=== PATIENT | male | born 1990 | race Caucasian/White ===

== ENCOUNTER 2020-01-29 14:50 | Emergency (ER) | payer OTHER, SELFPAY ==
[2020-01-29 15:01] VITALS: BP 115/84; PULSE 60; RESP 18; TEMP 37.1; O2SAT 100; BMI 23.0
--- NOTE | 2020-01-29 15:12 | XR_ITS ---
WS: [id number] XR chest 1V portable [id number] REASON FOR EXAM: CP FINDINGS: No pneumothorax is noted. The lung gonzalez are well aerated. No pneumonia, pleural effusion, pulmonary edema, or masses. The hilum and apices normal. No osseous abnormalities. XR/XR chest 1V portable [id number] IMPRESSION: Negative chest for acute pathology.
--- NOTE | 2020-01-29 15:12 | ECG_ITS ---
Measurements Intervals [place] Rate: 64 P: 50 CO: 138 QRS: 62 QRSD: 89 T: 53 QT: 358 QTc: 371 SINUS RHYTHM POSSIBLE RIGHT VENTRICULAR CONDUCTION DELAY [RSR (QR) IN V1/V2] ST ELEVATION, PROBABLY EARLY REPOLARIZATION [ST ELEVATION WITH NORMALLY IN INFLECTED T WAVE] Compared to ECG 08/25/2016 10:58:31 ST (T wave) deviation now present Early repolarization now present Electronically Signed On 01-30-2020 19:56:35 CDT by Tej Massey M.D. [id number]
[2020-01-29 15:49] LABS: Basophils % 0.4 %; Eosinophils # 0.1 10^3/uL (0.0-0.8); Eosinophils % 1.7 %; Hematocrit 44.5 % (42.0-52.0); Lymphocytes # 1.9 10^3/uL (0.8-4.8); Lymphocytes % 26.4 %; Mean Corpuscular HGB Conc 33.7 g/dL (30.0-36.0); Mean Corpuscular Hemoglobin 30.7 pg (28.0-34.0); Mean Corpuscular Volume 91.2 fL (80-94); Mean Platelet Volume 9.8 fL (7.4-10.4); Monocytes # 0.7 10^3/uL (0.2-0.9); Neutrophils # 4.4 10^3/uL (1.8-7.7); Neutrophils % 61.4 %; Nucleated Red Blood Cells % 0 %; Platelet Count 257 10^3/cmm (130-400); Red Blood Count 4.88 10^6/uL (4.1-5.3); White Blood Count 7.1 10^3/uL (4.0-10.0)
[2020-01-29 16:04] LABS: D Dimer <= 0.27 ug/mIFEU (0-0.59)
[2020-01-29 16:12] LABS: Troponin(5th) Baseline 6 ng/mL (0-15)
[2020-01-29 16:22] LABS: Alanine Aminotransferase 21 U/L (0-41); Albumin Level 4.6 g/dL (3.5-5.2); Alkaline Phosphatase 115 IU/L (40-130); Anion Gap 15.1 (5-19); Aspartate Amino Transferase 17 U/L (0-40); Blood Urea Nitrogen 13 mg/dL (6-20); Calcium 9.7 mg/dL (8.5-10.5); Carbon Dioxide 25 mmol/L (22-29); Chloride 103 mmol/L (98-107); Globulin 2.3 g/dL (1.3-4.6); Glomerular Filtration Rate 99.8 mL/min (90-130); Glucose 112 mg/dL (65-115); NT Pro B Type Natriuretic Pept 49 pg/mL (0-125); Osmolality Calculated 285 mOsm/kg (285-295); Potassium 4.1 mmol/L (3.5-5.1); Sodium 139 mmol/L (136-145); Total Bilirubin 0.2 mg/dL (0.15-1.2); Total Protein 6.9 g/dL (6.6-8.7)
--- NOTE | 2020-01-29 17:12 | PC.NURSE ---
EKG done at 1710 and shown to ER doctor
--- NOTE | 2020-01-29 18:43 | PC.NURSE ---
Pt has been seen several times leaving the department to go outside and smoke.
--- NOTE | 2020-01-29 19:37 | USCV_ITS ---
Víctor Espana Age: 30 Gender: M : 1990 Exam Date: 01/29/2020 20:52 Ordering Phys: Carson Zuniga DO Technologist: Kristian Schulz Exam Location: [facility] [place]_ Indication: LT ARM PAIN AND SWELLING HISTORY: Upper extremity pain. PROCEDURES: Venous duplex imaging was performed in only the left upper extremity. The following venous structures were evaluated: internal jugular vein, subclavian vein, axillary vein, and brachial veins. In addition, the basilic vein, cephalic vein, radial vein, and ulnar vein. Serial compression, augmentation maneuvers, and spectral Doppler flow evaluation were performed. FINDINGS: The veins of the left upper extremity are readily compressible with normal venous flow dynamics including spontaneous flow, respiratory phasic variation and augmentation. No evidence of deep vein thrombosis or superficial thrombophlebitis in the left upper extremity. CONCLUSIONS No evidence of venous thrombosis in the above-mentioned identifiable veins Dr Tej Massey MD [facility] (Electronically Signed) Final Date: 30 Jan 2020 14:31 S
[2020-01-29 20:05] LABS: Troponin 5 2HR Delta 0 ABS# (0-10)
[2020-01-29 20:13] LABS: Add Urine Microscopic? NO
[2020-01-29 20:30] LABS: Bilirubin Urine Neg (NEGATIVE); Blood Urine Neg (Negative); Glucose Urine UA Norm (Normal); Ketones Urine Negative (Negative); Leukocyte Esterase Urine Negative (Negative); Nitrate Urine Negative (Negative); Protein Urine Neg (Negative); Specific Gravity, Urine 1.015 (1.005-1.030); Urine Appearance Clear (CLEAR); Urine Color Yellow (Yellow); Urobilinogen Urine Norm (Negative); pH Urine 7 (5-7)
--- NOTE | 2020-01-29 21:12 | ECG_ITS ---
Measurements Intervals [place] Rate: 59 P: 48 [place]: 131 QRS: 64 QRSD: 88 T: 60 QT: 374 QTc: 372 SINUS BRADYCARDIA WITH SINUS ARRHYTHMIA EARLY REPOLARIZATION [ST ELEVATION WITH NORMALLY INFLECTED T WAVE] Compared to ECG 08/25/2016 10:58:31 Early repolarization now present Sinus rhythm no longer present Electronically Signed On 01-30-2020 20:12:14 CDT by Tej Massey M.D. [email or web address]
--- NOTE | 2020-01-29 21:18 | ED_ITS ---
HPI - Extremity Problem General: Chief complaint: Extremity Problem,Nontraumatic Stated complaint: sob, cp, chest tightness Time Seen by Provider: 01/29/20 19:20 History of Present Illness: HPI Narrative: 30-year-old male with a burning type sensation to his left chest left axilla and in her left arm. Some pain with deep breathing. No shortness of breath. Tenderness in the arm is reproducible. He has some paresthesias into the fingers. No long car trips, no fever, no cough. MD Complaint: extremity pain Onset (ago): day(s) Pain Consistency: intermittent Location: left Quality: burning Radiation: proximal Relieving factors: nothing Exacerbating factors: nothing Associated symptoms: Deny fever(s), rash or short of breath Review of Systems Const: Denies: fever Eyes: Denies: change in vision ENMT: Denies: painful swallowing, swelling of lips/tongue, Change in hearing or facial/sinus pain Resp: Denies: shortness of breath, productive cough, non-productive cough or wheezing GI: Denies: abdominal pain, nausea or vomiting : Denies: difficulty urinating, urinary urgency or blood in urine Musc: Reports: back pain; Denies: neck pain, redness or joint warmth Skin/Breast: Denies: rash, itching or redness Neuro: Denies: headache, dizziness or vertigo Psych: Denies: anxiety PFSH ED PFSH: Social History Smoking and tobacco status: former smoker Physical Exam Const: GENERAL APPEARANCE: well developed ORIENTATION/CONSCIOUSNESS: Yes oriented to person, Yes oriented to place and Yes oriented to time HENMT: COMMON NORMALS: normocephalic HEAD & SCALP: normocephalic FACE & SINUS: normal facial exam NOSE: no nasal discharge MOUTH: tongue normal Eye: COMMON NORMALS: PERRL, EOMs intact bilaterally and conjunctivae normal EYELID: eyelids normal CONJUNCTIVA: Yes conjunctivae normal PUPIL: Yes PERRL Neck/C-Spine: COMMON NORMALS: full ROM GENERAL: No tracheal deviation CERVICAL SPINE: Yes normal cervical lordosis and No cervical spine tenderness Chest: COMMONS NORMALS: inspection of chest normal CHEST: Yes tenderness Resp: COMMON NORMALS: clear to auscultation bilaterally EFFORT & INSPECTION: No tachypneic, No respiratory distress, No retractions, No uses accessory muscles and No tracheal deviation AUSCULTATION: clear to auscultation bilaterally, no rhonchi, no wheezes and lung sounds not diminished Cardio: COMMON NORMALS: regular rate and regular rhythm RATE: regular rate RHYTHM: regular rhythm HEART SOUNDS: no murmurs PERIPHERAL PULSES: radial pulses present GI: INSPECTION: No abdominal distension AUSCULTATION: No hyperactive bowel sounds and No hypoactive bowel sounds PALPATION: No guarding and No rigid PERCUSSION: no dullness to percussion and no tympanic to percussion Neuro: SENSORIUM/ORIENTATION: Yes oriented to person, Yes oriented to place and Yes oriented to time Psych: COMMON NORMALS: mental status grossly normal Skin: COMMON NORMALS: no rashes or lesions noted GENERAL SKIN EXAM: no rashes or lesions noted Course Vital Signs: Vital signs: Vital Signs Temperature 98.7 F 01/29/20 15:01 Pulse Rate 78 01/29/20 21:54 Respiratory Rate 18 01/29/20 21:54 Blood Pressure 134/84 01/29/20 21:54 Pulse Oximetry 97 01/29/20 21:54 MDM - Extremity (Nontraumatic) MDM Narrative: Medical decision making narrative: Somewhat reproducible pain on palpation of the left anterior and posterior upper chest wall, as well as the inner arm. His EKG is normal without ST change. His troponin is negative. His d-dimer is nondetectable. Ultrasound of the left upper extremity is negative for DVT. He has great radial pulses. His labs are otherwise normal. His chest x-ray is negative. Lab Data: Labs: Lab Results 01/29/20 01/29/20 01/29/20 Range/Units 15:38 15:38 15:38 WBC 7.1 (4.0-10.0) 10^3/ uL RBC 4.88 (4.1-5.3) 10^6/u L Hgb 15.0 (11.7-16.6) g/dL Hct 44.5 (42.0-52.0) % MCV 91.2 (80-94) fL MCH 30.7 (28.0-34.0) pg MCHC 33.7 (30.0-36.0) g/dL RDW 12.0 L (12.1-15.1) % Plt Count 257 (130-400) 10^3/c mm MPV 9.8 (7.4-10.4) fL Neut % (Auto) 61.4 % Lymph % (Auto) 26.4 % [place] % (Auto) 10.0 % Eos % (Auto) 1.7 % Baso % (Auto) 0.4 % Neut # (Auto) 4.4 (1.8-7.7) 10^3/u L Lymph # (Auto) 1.9 (0.8-4.8) 10^3/u L [place] # (Auto) 0.7 (0.2-0.9) 10^3/u L Eos # (Auto) 0.1 (0.0-0.8) 10^3/u L Baso # (Auto) 0.0 (0.0-0.1) 10^3/u L Nucleated RBC % (a uto) 0 % Nucleated RBCs # 0.0 /100WBC D-Dimer <= 0.27 (0-0.59) ug/mIFE U Sodium 139 (136-145) mmol/L Potassium 4.1 (3.5-5.1) mmol/L Chloride 103 (98-107) mmol/L Carbon Dioxide 25 (22-29) mmol/L Anion Gap 15.1 (5-19) BUN 13 (6-20) mg/dL Creatinine 0.9 (0.7-1.2) mg/dL GFR Calculation 99.8 (90-130) mL/min Glucose 112 (65-115) mg/dL Calculated Osmolal ity 285 (285-295) mOsm/k g Calcium 9.7 (8.5-10.5) mg/dL Total Bilirubin 0.2 (0.15-1.2) mg/dL AST 17 (0-40) U/L ALT 21 (0-41) U/L Alkaline Phosphata se 115 (40-130) IU/L Troponin T Baselin e (0-15) ng/mL Troponin T 120 Min [place] (0-15) ng/mL Delta Troponin T (0-10) ABS# NT-Pro-B Natriuret Pep 49 (0-125) pg/mL Total Protein 6.9 (6.6-8.7) g/dL Albumin 4.6 (3.5-5.2) g/dL Globulin 2.3 (1.3-4.6) g/dL Urine Color (Yellow) Urine Appearance (CLEAR) Urine pH (5-7) Ur Specific Gravit y (1.005-1.030) Urine Protein (Negative) Urine Glucose (UA) (Normal) Urine Ketones (Negative) Urine Blood (Negative) Urine Nitrate (Negative) Urine Bilirubin (NEGATIVE) Urine Urobilinogen (Negative) mg/dL Ur Leukocyte Rossy ase (Negative) 01/29/20 01/29/20 01/29/20 Range/Units 15:38 18:08 20:00 WBC (4.0-10.0) 10^3/ uL RBC (4.1-5.3) 10^6/u L Hgb (11.7-16.6) g/dL Hct (42.0-52.0) % MCV (80-94) fL MCH (28.0-34.0) pg MCHC (30.0-36.0) g/dL RDW (12.1-15.1) % Plt Count (130-400) 10^3/c mm MPV (7.4-10.4) fL Neut % (Auto) % Lymph % (Auto) % [place] % (Auto) % Eos % (Auto) % Baso % (Auto) % Neut # (Auto) (1.8-7.7) 10^3/u L Lymph # (Auto) (0.8-4.8) 10^3/u L [place] # (Auto) (0.2-0.9) 10^3/u L Eos # (Auto) (0.0-0.8) 10^3/u L Baso # (Auto) (0.0-0.1) 10^3/u L Nucleated RBC % (a uto) % Nucleated RBCs # /100WBC D-Dimer (0-0.59) ug/mIFE U Sodium (136-145) mmol/L Potassium (3.5-5.1) mmol/L Chloride (98-107) mmol/L Carbon Dioxide (22-29) mmol/L Anion Gap (5-19) BUN (6-20) mg/dL Creatinine (0.7-1.2) mg/dL GFR Calculation (90-130) mL/min Glucose (65-115) mg/dL Calculated Osmolal ity (285-295) mOsm/k g Calcium (8.5-10.5) mg/dL Total Bilirubin (0.15-1.2) mg/dL AST (0-40) U/L ALT (0-41) U/L Alkaline Phosphata se (40-130) IU/L Troponin T Baselin e 6 (0-15) ng/mL Troponin T 120 Min [place] 6.00 (0-15) ng/mL Delta Troponin T 0 (0-10) ABS# NT-Pro-B Natriuret Pep (0-125) pg/mL Total Protein (6.6-8.7) g/dL Albumin (3.5-5.2) g/dL Globulin (1.3-4.6) g/dL Urine Color Yellow (Yellow) Urine Appearance Clear (CLEAR) Urine pH 7 (5-7) Ur Specific Gravit y 1.015 (1.005-1.030) Urine Protein Neg (Negative) Urine Glucose (UA) Norm (Normal) Urine Ketones Negative (Negative) Urine Blood Neg (Negative) Urine Nitrate Negative (Negative) Urine Bilirubin Neg (NEGATIVE) Urine Urobilinogen Norm (Negative) mg/dL Ur Leukocyte Rossy ase Negative (Negative) Discharge Plan Discharge Patient Disposition: Home, Self-Care Clinical Impression: Paresthesia and pain of left extremity Condition: Stable Prescriptions: New Medrol (Luis E) 4 mg tablets,dose pack See Rx Instructions .ROUTE .COMPLEX Qty: 21 RF: 0 ketorolac 10 mg tablet 10 mg PO Q6H PRN (Reason: pain) 5 Days Qty: 20 RF: 0 No Action omeprazole 20 mg capsule,delayed release(DR/EC) 20 mg PO TID RF: 0 buspirone 15 mg tablet 15 mg PO DAILY RF: 0 Discharge Orders: Discharge Order (Routine); Ordered 01/29/20 Ordered By: Carson Zuniga Discharge Diet: Advance as tolerated Discharge Activity: Increase activity as tolerated Patient Instructions: Paresthesia (ED) Activity Restrictions/Additional Instructions: Return for worsening shortness of breath cough, fever, worsening pain despite treatment, other concerning symptoms. Discharge Date/Time: 01/29/20 21:30 Coding Level of Care Code ED [employer] for Denise Costa
[2020-01-29 21:54] VITALS: BP 134/84; PULSE 78; RESP 18; O2SAT 97
== END 2020-01-29 21:30 | disposition home or self-care (01) ==
PROVIDERS: Family Medicine; Emergency Provider Emergency Medicine
DX: R20.2 Paresthesia of skin (principal); Z87.891 Personal history of nicotine dependence; R07.9 Chest pain, unspecified
CPT/HCPCS: 12345; 36415; 71045; 80053; 81003; 83880; 84484; 85025; 85378; 93005; 93971; 99282; 99284

== ENCOUNTER 2020-02-07 20:24 | Emergency (ER) | payer OTHER, SELFPAY ==
[2020-02-07 20:25] VITALS: BP 120/78; PULSE 82; RESP 18; TEMP 36.7; O2SAT 97; BMI 25.7
--- NOTE | 2020-02-07 20:25 | XR_ITS ---
WS: [id number] CHEST XRAY TECHNIQUE: Portable chest. CLINICAL INFORMATION: Chest pain COMPARISON: January 29, 2020 FINDINGS: Heart: Normal cardiac silhouette. Lungs: Lungs are clear. No consolidation or pleural effusion. Bones: Normal visualized bony structures. XR/XR chest 1V portable [id number] IMPRESSION: No acute chest findings
--- NOTE | 2020-02-07 20:26 | ECG_ITS ---
Measurements Intervals [place] Rate: 61 P: 52 [place]: 139 QRS: 59 QRSD: 88 T: 54 QT: 372 QTc: 375 SINUS RHYTHM POSSIBLE RIGHT VENTRICULAR CONDUCTION DELAY [RSR (QR) IN V1/V2] EARLY REPOLARIZATION [ST ELEVATION WITH NORMALLY INFLECTED T WAVE] Compared to ECG 02/07/2020 20:38:54 Early repolarization now present Electronically Signed On 02-08-2020 20:48:32 CDT by Tej Massey M.D. [id number]
--- NOTE | 2020-02-07 20:34 | ED_ITS ---
HPI - Chest Pain General: Chief Complaint: Chest Pain Stated Complaint: cp Time Seen by Provider: 02/07/20 20:25 History of Present Illness: HPI narrative: Víctor is a 30-year-old male who comes in complaining of chest pain. He states is been intermittent and in his left arm, left back and chest. He was given nitroglycerin and aspirin by EMS with no relief. Patient states he had similar symptoms in August and he was told that he had a panic attack. The patient states that walking and exerting himself makes things better. His symptoms did start today after he resumed smoking which he had quit back in August. He stated he did have an episode where he had the discomfort and he felt warm and burning all over with some shortness of breath and yawning like he could pass out but the symptoms resolved spontaneously. The patient describes the pain as an ache. He has no numbness or tingling or weakness of any of his extremities. Patient states that he may have hurt his back by lifting and straining as he has a very physically demanding job. Because the pain was so severe for a time though that is why he came in for evaluation. Associated symptoms: Reports palpitations; Deny abdominal pain, diaphoresis, dyspnea, fever(s), nausea, syncope or vomiting Review of Systems Const: Denies: fever(s), chills, body aches, fatigue, malaise, night sweats or diaphoresis Eyes: Denies: change in vision, blurry vision or blind spots ENMT: Denies: throat pain, odynophagia, hoarseness, ear or mastoid pain, ear discharge, change in hearing or nasal discharge Card: Reports: chest pain, palpitations and pre-syncope; Denies: lightheadedness, syncope, dyspnea on exertion or orthopnea Resp: Denies: dyspnea, productive cough, non-productive cough, wheezing, hemoptysis or chest congestion GI: Denies: abdominal pain, nausea, vomiting, hematemesis, coffee ground emesis, heartburn, diarrhea, constipation, GI cramping, hematochezia or melena : Denies: flank pain, dysuria, urinary frequency, urinary urgency, oliguria, urinary incontinence or hematuria Musc: Denies: neck pain, back pain, extremity pain, extremity swelling, joint pain, joint swelling, joint redness, joint warmth or joint stiffness Skin/Breast: Denies: rash, pruritus, erythema, skin tenderness or jaundice Neuro: Denies: headache(s), numbness in extremities, weakness in extremities, sensory changes, lack of coordination, difficulty walking, dizziness, vertigo, confusion or Slurred speech present Endo: Denies: polyuria, polydipsia, tired all the time, cold intolerance, excessive sweating, flushing, hot flashes or heat intolerance Rancho/Lymph: Denies: easy bruising, easy bleeding, petechiae, purpura or enlarged lymph nodes All/Imm: Denies: urticaria, throat swelling, tongue swelling, facial swelling or acute wheezing PFSH ED PFSH: Medical History Atypical chest pain GERD (gastroesophageal reflux disease) Hernia Panic attack Umbilical hernia Family History Other Diabetes Stroke Denies family history of CAD (coronary artery disease) Hyperlipidemia Hypertension Social History Smoking and tobacco status: current every day smoker Quit status (tobacco): has quit using tobacco Year quit tobacco: November 2019 Alcohol intake: former Physical Exam Const: COMMON NORMALS: no acute distress, patient oriented x3, no limitations, healthy appearing and well nourished EXAM LIMITATIONS: no altered mental status GENERAL APPEARANCE: cooperative, well kempt and well developed HENMT: COMMON NORMALS: normocephalic, atraumatic, hearing grossly normal bilaterally, external ears normal, EAC's normal, Normal external nose present and moist oral mucous membranes HEAD & SCALP: normal to inspection, normocephalic and atraumatic FACE & SINUS: normal facial exam and face symmetric NOSE: Normal external nose present and Normal nares present EXTERNAL EAR: Yes external ears normal EXTERNAL AUDITORY CANAL: EAC's normal MOUTH: Normal oral and palatal mucosa present, lip normal and tongue normal Eye: COMMON NORMALS: Equal, round and reactive pupils present, EOMs intact bilaterally, conjunctivae normal and no scleral icterus GENERAL EYE: appearance normal, both eyes and all related structures ALIGNMENT: Yes alignment normal PERIORBITAL: periorbital findings normal EYELID: eyelids normal CONJUNCTIVA: Yes conjunctivae normal SCLERA: sclerae normal PUPIL: Yes Equal, round and reactive pupils present Neck/C-Spine: COMMON NORMALS: full ROM, no lymphadenopathy, supple, no meningeal signs and no JVD GENERAL: Yes normal visual inspection and Yes trachea midline CERVICAL SPINE: Yes cervical ROM normal Chest: COMMONS NORMALS: normal inspection of the chest and normal palpation of entire chest wall Resp: COMMON NORMALS: normal respiratory effort, No retractions, No use of accessory muscles and clear to auscultation bilaterally EFFORT & INSPECTION: Yes able to speak in complete sentences AUSCULTATION: clear to auscultation bilaterally, no crackles, no rales, no rhonchi and no wheezes Cardio: COMMON NORMALS: no JVD, regular rate, regular rhythm, S1 normal heart sound present, S2 normal heart sound present, No gallops present (Cardio), No clicks present (Cardio), No murmurs present (Cardio), No rub (Cardio) and Peripheral pulses 2+ throughout RATE: regular rate RHYTHM: regular rhythm HEART SOUNDS: S1 normal heart sound present, S2 normal heart sound present, no click, no gallops, no murmurs and no rubs PERIPHERAL PULSES: Peripheral pulses 2+ throughout, brachial pulses present, radial pulses present, femoral pulses present and dorsalis pedis present GI: COMMON NORMALS: Soft to palpation, non-tender, No hepatosplenomegaly present and no masses PALPATION: Yes Soft to palpation, No Tenderness to palpation present (GI), No Guarding due to palpation present (GI), No Rigid due to palpation, Yes No hepatosplenomegaly present, No Hernia present, No Palpable mass present and No Pulsatile mass present : COMMON NORMALS: Yes no CVA tenderness BLADDER/KIDNEY EXAM: Yes no CVA tenderness Back/Pelvis: COMMON NORMALS: no CVA tenderness, thoracic and lumbar spine normal to inspection, no thoracic nor lumbar tenderness and thoraco-lumbar ROM normal Extremity: COMMON NORMALS: normal to inspection, full ROM, capillary refill normal, no joint enlargement, no clubbing, cyanosis or edema and no calf tenderness Neuro: COMMON NORMALS: patient oriented x3, CN's II-XII intact bilaterally, moves all extremities, no focal motor deficits and no sensory deficits noted MENINGEAL SIGNS: Yes no meningeal signs SPEECH: speech normal Psych: COMMON NORMALS: mental status grossly normal, Normal thought process present, cooperative, normal affect, speech normal and activity/motor behavior normal APPEARANCE: Yes well kempt SPEECH: Yes normal speech THOUGHT PROCESS: Normal thought process present Skin: COMMON NORMALS: no rashes or lesions noted, turgor normal, no jaundice, no petechiae and no mottling GENERAL SKIN EXAM: no rashes or lesions noted a nd turgor normal Course Vital Signs: Vital signs: Vital Signs Temperature 98.0 F 02/07/20 20:25 Pulse Rate 80 02/08/20 00:08 Respiratory Rate 16 02/08/20 00:08 Blood Pressure 120/78 02/08/20 00:08 Pulse Oximetry 96 02/08/20 00:08 MDM - Chest Pain MDM Narrative: Medical decision making narrative: 2338 -anterior is now insisting upon going. The patient continued to complain of left upper back pain. He had a negative d-dimer, 2- troponins and pulses intact in all 4 extremities that were equal and bounding. He did not describe his pain as ripping or tearing and it did not migrate. His pain was always described as a dull ache. I believe this rules out dissection although wanted to be complete with a CT but he refused. He also refused CT of the cervical or thoracic spine which I wanted to obtain because he was having further pain but he refused this as well. Ultimately I think his risk is low as I could reproduce his pain along the left upper parathoracic spinal muscles. Nonetheless he knew he was leaving against my advice but did understand he could return if his symptoms changed or worsened or he simply changed his mind. Patient's heart score was a 2. Lab Data: Labs: Lab Results 02/07/20 02/07/20 02/07/20 Range/Units 20:44 20:44 20:44 WBC 8.2 (4.0-10.0) 10^3/ uL RBC 4.84 (4.1-5.3) 10^6/u L Hgb 14.8 (11.7-16.6) g/dL Hct 44.1 (42.0-52.0) % MCV 91.1 (80-94) fL MCH 30.6 (28.0-34.0) pg MCHC 33.6 (30.0-36.0) g/dL RDW 12.5 (12.1-15.1) % Plt Count 269 (130-400) 10^3/c mm MPV 9.9 (7.4-10.4) fL Neut % (Auto) 63.1 % Lymph % (Auto) 22.4 % Panola % (Auto) 11.5 % Eos % (Auto) 2.3 % Baso % (Auto) 0.5 % Neut # (Auto) 5.2 (1.8-7.7) 10^3/u L Lymph # (Auto) 1.8 (0.8-4.8) 10^3/u L Panola # (Auto) 0.9 (0.2-0.9) 10^3/u L Eos # (Auto) 0.2 (0.0-0.8) 10^3/u L Baso # (Auto) 0.0 (0.0-0.1) 10^3/u L Nucleated RBC % (a uto) 0 % Nucleated RBCs # 0.0 /100WBC D-Dimer (0-0.59) ug/mIFE U Sodium 141 (136-145) mmol/L Potassium 4.0 (3.5-5.1) mmol/L Chloride 105 (98-107) mmol/L Carbon Dioxide 24 (22-29) mmol/L Anion Gap 16.0 (5-19) BUN 13 (6-20) mg/dL Creatinine 0.7 (0.7-1.2) mg/dL GFR Calculation 133.3 H (90-130) mL/min Glucose 121 H (65-115) mg/dL Calculated Osmolal ity 289 (285-295) mOsm/k g Calcium 9.0 (8.5-10.5) mg/dL Magnesium 2.3 (1.7-2.3) mg/dL Total Bilirubin 0.2 (0.15-1.2) mg/dL AST 17 (0-40) U/L ALT 24 (0-41) U/L Alkaline Phosphata se 120 (40-130) IU/L Troponin T Baselin e 6 (0-15) ng/mL Troponin T 120 Min yuhaaviatam (0-15) ng/mL Delta Troponin T (0-10) ABS# Total Protein 6.7 (6.6-8.7) g/dL Albumin 4.5 (3.5-5.2) g/dL Globulin 2.2 (1.3-4.6) g/dL Lipase 15 (13-60) U/L Urine Color (Yellow) Urine Appearance (CLEAR) Urine pH (5-7) Ur Specific Gravit y (1.005-1.030) Urine Protein (Negative) Urine Glucose (UA) (Normal) Urine Ketones (Negative) Urine Blood (Negative) Urine Nitrate (Negative) Urine Bilirubin (NEGATIVE) Urine Urobilinogen (Negative) mg/dL Ur Leukocyte Rossy ase (Negative) Urine RBC (0-2) /hpf Urine WBC (0-5) /hpf Ur Squamous Epith Cells (0-5) Amorphous Sediment Urine Bacteria (NONE) Urine Mucus Urine Opiates Scre en (Negative) ng/mL Ur Barbiturates Sc reen (Negative) ng/mL Ur Phencyclidine S crn (Negative) ng/mL Ur Amphetamines Sc reen (Negative) ng/mL U Benzodiazepines Scrn (Negative) ng/mL Urine Cocaine Scre en (Negative) ng/mL U Marijuana (THC) Screen (Negative) ng/mL 02/07/20 02/07/20 02/07/20 Range/Units 20:44 20:47 20:47 WBC (4.0-10.0) 10^3/ uL RBC (4.1-5.3) 10^6/u L Hgb (11.7-16.6) g/dL Hct (42.0-52.0) % MCV (80-94) fL MCH (28.0-34.0) pg MCHC (30.0-36.0) g/dL RDW (12.1-15.1) % Plt Count (130-400) 10^3/c mm MPV (7.4-10.4) fL Neut % (Auto) % Lymph % (Auto) % Panola % (Auto) % Eos % (Auto) % Baso % (Auto) % Neut # (Auto) (1.8-7.7) 10^3/u L Lymph # (Auto) (0.8-4.8) 10^3/u L Panola # (Auto) (0.2-0.9) 10^3/u L Eos # (Auto) (0.0-0.8) 10^3/u L Baso # (Auto) (0.0-0.1) 10^3/u L Nucleated RBC % (a uto) % Nucleated RBCs # /100WBC D-Dimer 0.47 (0-0.59) ug/mIFE U Sodium (136-145) mmol/L Potassium (3.5-5.1) mmol/L Chloride (98-107) mmol/L Carbon Dioxide (22-29) mmol/L Anion Gap (5-19) BUN (6-20) mg/dL Creatinine (0.7-1.2) mg/dL GFR Calculation (90-130) mL/min Glucose (65-115) mg/dL Calculated Osmolal ity (285-295) mOsm/k g Calcium (8.5-10.5) mg/dL Magnesium (1.7-2.3) mg/dL Total Bilirubin (0.15-1.2) mg/dL AST (0-40) U/L ALT (0-41) U/L Alkaline Phosphata se (40-130) IU/L Troponin T Baselin e (0-15) ng/mL Troponin T 120 Min yuhaaviatam (0-15) ng/mL Delta Troponin T (0-10) ABS# Total Protein (6.6-8.7) g/dL Albumin (3.5-5.2) g/dL Globulin (1.3-4.6) g/dL Lipase (13-60) U/L Urine Color Yellow (Yellow) Urine Appearance Hazy A (CLEAR) Urine pH 7 (5-7) Ur Specific Gravit y 1.015 (1.005-1.030) Urine Protein Neg (Negative) Urine Glucose (UA) Norm (Normal) Urine Ketones Negative (Negative) Urine Blood Neg (Negative) Urine Nitrate Negative (Negative) Urine Bilirubin Neg (NEGATIVE) Urine Urobilinogen Norm (Negative) mg/dL Ur Leukocyte Rossy ase Negative (Negative) Urine RBC 0-4 H (0-2) /hpf Urine WBC None (0-5) /hpf Ur Squamous Epith Cells 0-4 H (0-5) Amorphous Sediment 1+ Urine Bacteria 1+ H (NONE) Urine Mucus 2+ Urine Opiates Scre en Negative (Negative) ng/mL Ur Barbiturates Sc reen Negative (Negative) ng/mL Ur Phencyclidine S crn Negative (Negative) ng/mL Ur Amphetamines Sc reen Negative (Negative) ng/mL U Benzodiazepines Scrn Negative (Negative) ng/mL Urine Cocaine Scre en Negative (Negative) ng/mL U Marijuana (THC) Screen Negative (Negative) ng/mL 02/07/20 Range/Units 22:07 WBC (4.0-10.0) 10^3/ uL RBC (4.1-5.3) 10^6/u L Hgb (11.7-16.6) g/dL Hct (42.0-52.0) % MCV (80-94) fL MCH (28.0-34.0) pg MCHC (30.0-36.0) g/dL RDW (12.1-15.1) % Plt Count (130-400) 10^3/c mm MPV (7.4-10.4) fL Neut % (Auto) % Lymph % (Auto) % Panola % (Auto) % Eos % (Auto) % Baso % (Auto) % Neut # (Auto) (1.8-7.7) 10^3/u L Lymph # (Auto) (0.8-4.8) 10^3/u L Panola # (Auto) (0.2-0.9) 10^3/u L Eos # (Auto) (0.0-0.8) 10^3/u L Baso # (Auto) (0.0-0.1) 10^3/u L Nucleated RBC % (a uto) % Nucleated RBCs # /100WBC D-Dimer (0-0.59) ug/mIFE U Sodium (136-145) mmol/L Potassium (3.5-5.1) mmol/L Chloride (98-107) mmol/L Carbon Dioxide (22-29) mmol/L Anion Gap (5-19) BUN (6-20) mg/dL Creatinine (0.7-1.2) mg/dL GFR Calculation (90-130) mL/min Glucose (65-115) mg/dL Calculated Osmolal ity (285-295) mOsm/k g Calcium (8.5-10.5) mg/dL Magnesium (1.7-2.3) mg/dL Total Bilirubin (0.15-1.2) mg/dL AST (0-40) U/L ALT (0-41) U/L Alkaline Phosphata se (40-130) IU/L Troponin T Baselin e (0-15) ng/mL Troponin T 120 Min yuhaaviatam 6.00 (0-15) ng/mL Delta Troponin T 0 (0-10) ABS# Total Protein (6.6-8.7) g/dL Albumin (3.5-5.2) g/dL Globulin (1.3-4.6) g/dL Lipase (13-60) U/L Urine Color (Yellow) Urine Appearance (CLEAR) Urine pH (5-7) Ur Specific Gravit y (1.005-1.030) Urine Protein (Negative) Urine Glucose (UA) (Normal) Urine Ketones (Negative) Urine Blood (Negative) Urine Nitrate (Negative) Urine Bilirubin (NEGATIVE) Urine Urobilinogen (Negative) mg/dL Ur Leukocyte Rossy ase (Negative) Urine RBC (0-2) /hpf Urine WBC (0-5) /hpf Ur Squamous Epith Cells (0-5) Amorphous Sediment Urine Bacteria (NONE) Urine Mucus Urine Opiates Scre en (Negative) ng/mL Ur Barbiturates Sc reen (Negative) ng/mL Ur Phencyclidine S crn (Negative) ng/mL Ur Amphetamines Sc reen (Negative) ng/mL U Benzodiazepines Scrn (Negative) ng/mL Urine Cocaine Scre en (Negative) ng/mL U Marijuana (THC) Screen (Negative) ng/mL Imaging Data^: CXR: My impression: No acute cardiopulmonary findings. Normal mediastinum. EKG Data^: EKG 1: Attestation: I personally reviewed and interpreted this EKG as follows: EKG interpretation date: 02/07/20 EKG interpretation time: 20:38 Interpretation: Normal sinus rhythm at 77 beats a minute, no blocks, normal intervals, benign early repolarization present, no other acute ST-T wave changes. Similar to previous. EKG 2: Attestation: I personally reviewed and interpreted this EKG as follows: EKG interpretation date: 02/07/20 EKG interpretation time: 22:54 Interpretation: Normal sinus rhythm at 61 beats a minute, benign early polarization. Unchanged from previous. Discharge Plan Discharge Patient Disposition: Home, Self-Care Clinical Impression: Back pain Qualifiers: Back pain location: thoracic back pain Chronicity: acute Back pain laterality: left Qualified Code(s): M54.6 - Pain in thoracic spine Condition: Stable Prescriptions: New cyclobenzaprine 10 mg tablet 10 mg PO TID PRN (Reason: muscle spasm) Qty: 30 RF: 0 ibuprofen 800 mg tablet 800 mg PO TID PRN (Reason: pain) Qty: 30 RF: 0 No Action aspirin 325 mg Tablet 325 mg PO PRN PRN (Reason: Pain) RF: 0 buspirone 15 mg tablet 15 mg PO DAILY RF: 0 omeprazole 20 mg capsule,delayed release(DR/EC) 20 mg PO DAILY RF: 0 Discharge Orders: Discharge Order (Routine); Ordered 02/07/20 Ordered By: Jenelle Perez Referrals: Lauryn Campos FNP [Primary Care Provider] - 1-3 days Discharge Diet: Advance as tolerated Discharge Activity: Resume usual activity Patient Instructions: Chest Pain (ED) Activity Restrictions/Additional Instructions: You're leaving AGAINST MEDICAL ADVICE and are at risk for or severe permanent disability by doing so. You are more than welcome to return at any time for recheck and for further evaluation and care suture change you change your mind. I have recommended and offered further work-up of your back and chest pain but you have declined. If you change your mind or your symptoms return in any way please return to the ER immediately for recheck. Discharge Date/Time: 02/08/20 00:10 Coding Level of Care Code ED Launch Manager for Denise Fwfranchesca Exam Comprehensive
--- NOTE | 2020-02-07 20:50 | XRR_ITS ---
PROCEDURE INFORMATION: Exam: XR Thoracic Spine, 3 Views Exam date and time: 02/07/2020 8:51 PM Age: 30 years old Clinical indication: Injury or trauma; Fall; Initial encounter; Blunt trauma (contusions or hematomas) TECHNIQUE: Imaging protocol: XR of the thoracic spine, 3 views. COMPARISON: No relevant prior studies available. FINDINGS: Vertebrae: Vertebral body height is maintained. No subluxation. Normal bone mineralization. Lungs: Visualized lungs are clear. Soft tissues: No soft tissue swelling. No radiopaque foreign body. XR/XR thoracic spine 2V [id number] IMPRESSION: No acute fracture of the thoracic spine. CT scan would be recommended if there is continuing clinical concern for fracture.
--- NOTE | 2020-02-07 20:50 | XRR_ITS ---
PROCEDURE INFORMATION: Exam: XR Cervical Spine, 2 or 3 Views Exam date and time: 02/07/2020 8:51 PM Age: 30 years old Clinical indication: Injury or trauma; Fall; Initial encounter; Blunt trauma TECHNIQUE: Imaging protocol: XR of the cervical spine, 2 or 3 views. COMPARISON: No relevant prior studies available. FINDINGS: Vertebrae: Vertebral body height is maintained. No subluxation. Normal bone mineralization. Straightening of the cervical spine. Intervertebral disc space height is preserved. Lungs: Visualized lungs are clear. Soft tissues: No soft tissue swelling. No radiopaque foreign body. XR/XR cervical spine 3V* [id number] IMPRESSION: 1. No acute fracture of the cervical spine. CT scan would be recommended if there is continuing clinical concern for fracture. 2. Incidental/nonacute findings are listed in the report.
[2020-02-07 20:53] LABS: Basophils % 0.5 %; Eosinophils # 0.2 10^3/uL (0.0-0.8); Eosinophils % 2.3 %; Hematocrit 44.1 % (42.0-52.0); Hemoglobin 14.8 g/dL (11.7-16.6); Lymphocytes # 1.8 10^3/uL (0.8-4.8); Lymphocytes % 22.4 %; Mean Corpuscular HGB Conc 33.6 g/dL (30.0-36.0); Mean Corpuscular Hemoglobin 30.6 pg (28.0-34.0); Mean Corpuscular Volume 91.1 fL (80-94); Mean Platelet Volume 9.9 fL (7.4-10.4); Monocytes # 0.9 10^3/uL (0.2-0.9); Monocytes % 11.5 %; Neutrophils # 5.2 10^3/uL (1.8-7.7); Neutrophils % 63.1 %; Nucleated Red Blood Cells % 0 %; Platelet Count 269 10^3/cmm (130-400); Red Blood Count 4.84 10^6/uL (4.1-5.3); Red Cell Distribution Width 12.5 % (12.1-15.1); White Blood Count 8.2 10^3/uL (4.0-10.0)
[2020-02-07 21:24] VITALS: BP 120/78; PULSE 70; RESP 16; O2SAT 98
[2020-02-07 21:27] LABS: Alanine Aminotransferase 24 U/L (0-41); Albumin Level 4.5 g/dL (3.5-5.2); Alkaline Phosphatase 120 IU/L (40-130); Aspartate Amino Transferase 17 U/L (0-40); Blood Urea Nitrogen 13 mg/dL (6-20); Carbon Dioxide 24 mmol/L (22-29); Chloride 105 mmol/L (98-107); Globulin 2.2 g/dL (1.3-4.6); Glomerular Filtration Rate 133.3 mL/min (90-130); Glucose 121 mg/dL (65-115); Lipase 15 U/L (13-60); Magnesium 2.3 mg/dL (1.7-2.3); Osmolality Calculated 289 mOsm/kg (285-295); Sodium 141 mmol/L (136-145); Total Bilirubin 0.2 mg/dL (0.15-1.2); Total Protein 6.7 g/dL (6.6-8.7)
[2020-02-07 21:31] LABS: Troponin(5th) Baseline 6 ng/mL (0-15)
[2020-02-07 21:47] VITALS: BP 120/78; PULSE 76; RESP 16; O2SAT 96
[2020-02-07 22:13] LABS: Amphetamines Screen Urine Negative (Negative); Barbiturates Screen Urine Negative (Negative); Benzodiazepines Screen Urine Negative (Negative); Cocaine Screen Urine Negative (Negative); Opiate Screen Urine Negative (Negative); PCP Screen Urine Negative (Negative); THC Screen Urine Negative (Negative)
[2020-02-07 22:16] LABS: Bilirubin Urine Neg (NEGATIVE); Blood Urine Neg (Negative); Glucose Urine UA Norm (Normal); Ketones Urine Negative (Negative); Leukocyte Esterase Urine Negative (Negative); Nitrate Urine Negative (Negative); Protein Urine Neg (Negative); Specific Gravity, Urine 1.015 (1.005-1.030); Urine Appearance Hazy (CLEAR); Urine Color Yellow (Yellow); Urobilinogen Urine Norm (Negative); pH Urine 7 (5-7)
[2020-02-07 22:17] LABS: D Dimer 0.47 ug/mIFEU (0-0.59)
[2020-02-07 22:17] LABS: RBC Urine 0-4 /hpf (0-2)
[2020-02-07 22:18] LABS: Add Urine Culture? No; Amorphous Sediment Urine 1+; Bacteria Urine 1+; Mucus Urine 2+; Squamous Epithelial Cell Urine 0-4 (0-5)
--- NOTE | 2020-02-07 22:26 | ECG_ITS ---
Measurements Intervals Rand Rate: 77 P: 40 MD: 139 QRS: 48 QRSD: 89 T: 40 QT: 353 QTc: 402 SINUS RHYTHM POSSIBLE RIGHT VENTRICULAR CONDUCTION DELAY [RSR (QR) IN V1/V2] Compared to ECG 01/29/2020 17:15:03 Sinus bradycardia no longer present Sinus arrhythmia no longer present Early repolarization no longer present Electronically Signed On 02-07-2020 20:47:14 CDT by Ana Mcduffie M.D. [email or web address]
[2020-02-07 22:27] LABS: Troponin 5 2HR Delta 0 ABS# (0-10)
[2020-02-07 23:02] VITALS: BP 128/72; PULSE 66; RESP 16; O2SAT 98
[2020-02-08 00:08] VITALS: BP 120/78; PULSE 80; RESP 16; O2SAT 96
== END 2020-02-08 00:10 | disposition home or self-care (01) ==
PROVIDERS: Emergency Provider Emergency Medicine; PCP Nurse Practitioner
DX: M54.6 Pain in thoracic spine (principal); Z79.82 Long term (current) use of aspirin; F17.210 Nicotine dependence, cigarettes, uncomplicated; K21.9 Gastro-esophageal reflux disease without esophagitis; Z79.899 Other long term (current) drug therapy
CPT/HCPCS: 12345; 36415; 71045; 72040; 72070; 80053; 80306; 81001; 83690; 83735; 84484; 85025; 85378; 93005; 99283

== ENCOUNTER 2020-02-23 11:12 | Outpatient (CLI) | payer OTHER, SELFPAY ==
--- NOTE | 2020-02-23 11:38 | ECG_ITS ---
NAME OF STUDY: TREADMILL STRESS ECHOCARDIOGRAM INDICATION: Atypical Chest Pain PROCEDURE: The baseline electrocardiogram showed normal sinus rhythm with normal ST-Ts. At the baseline, the patient's blood pressure was 108/66 mm Hg with a heart rate of 74. The patient exercised for 7 minutes and 51 seconds on a standard Matias protocol. Patient attained a maximum heart rate of 191 beats per minute(92 % of the maximum predicted heart rate) with a blood pressure at the peak exercise of 203/70 mm Hg. The EKG at the peak exercise revealed no significant changes. Patient did not have any chest pain or any significant arrhythmis with the exercise The echocardiogram was done at the baseline, peak exercise and do the recording face During the recovery phase, there were no new changes. Blood pressure at the end of the recovery phase was 118/59 mm Hg with a heart rate of 95 per minute. CONCLUSION: 1. No significant EKG changes with the [treadmill exercise 2. No exercise-induced chest pain or cardiac arrhythmia 3. Good exercise tolerance, attained a maximum of 10.2 METs 4. Hypertensive response to exercise 5. Echocardiogram pictures were taken in the standard views at the baseline, peak exercise and during recovery phase.. Please see separate report Electronically Signed On 02-28-2020 19:19:25 CDT by Tej Massey M.D. [email or web address]
[2020-02-23 11:45] VITALS: BMI 25.7
[2020-02-23 12:13] VITALS: BP 118/59; PULSE 82
--- NOTE | 2020-02-23 12:15 | USCV_ITS ---
Víctor Espana Age: 30 Gender: M : 1990 Exam Date: 02/23/2020 11:36 Ordering Phys: Tej Massey MD ([email or web address]) Technologist: April Irving Exam Location: [facility] [place] Indication: ATYPICAL CHEST PAIN Rhythm: Sinus Patient History: SMOKER, GERD Cardiac Medications: NONE Medications in past 24 hours: NONE Contrast: Stress Results Protocol: Matias Total dose(mL): Exercise Duration (min:sec): 7:51 METS: 10.2 Resting HR: 64 Resting BP: 108 / 66 Peak HR: 176 Peak BP: 203 / 70 Max Predicted HR: 191 92 % Max Predicted HR Target HR: 162 Double Product: 24507 Stress Summary: PATIENT EXPERIENCED SOB THAT RESOLVED QUICKLY DURING RECOVERY BP Response: NORMAL Reason for Termination: TARGET HR REACHED Cardiac Symptoms: SOB ECG Analysis Resting ECG: Please see separate report Stress ECG: Please see separate report Arrhythmia: Please see separate report MEASUREMENTS (Male/Female) Normal Values FINDINGS The baseline echocardiogram with normal LV size and ejection fraction. Segmental wall motion analysis revealing no gross wall motion normalities. No intracardiac masses or pericardial effusion. Aortic and mitral valve appear to have no gross morphology abnormalities With a peak exercise, there is good augmentation of all the segments with no significant wall motion normalities. During the recovery phase, there was no new changes. CONCLUSIONS Normal echocardiographic response to treadmill exercise. No significant coronary ischemia, based on the above findings Dr Tej Massey MD [facility] (Electronically Signed) Final Date: 23 February 2020 18:34 S
== END 2020-02-23 11:13 | disposition home or self-care (01) ==
PROVIDERS: PCP Nurse Practitioner; Visit Provider Internal Medicine Cardiovascular Disease
DX: R07.89 Other chest pain (principal); R06.02 Shortness of breath; R94.31 Abnormal electrocardiogram [ECG] [EKG]
CPT/HCPCS: 93017; 93350

== ENCOUNTER 2020-03-14 08:35 | Day surgery (SDC) | payer OTHER, SELFPAY ==
[2020-03-10 13:16] VITALS: BMI 24.4
[2020-03-14 08:56] VITALS: BP 110/82; PULSE 73; RESP 18; TEMP 36.1; O2SAT 97
[2020-03-14] MEDS: sodium chloride 0.9% 1,000 ML 30 ML IV (09:18)
--- NOTE | 2020-03-14 09:37 | ANES.PREANE2 ---
Pre-Anesthetic Assessment Pre-Anesthetic Assessment: Height/Weight: Height 1.83 m Weight 81.647 kg Temp Pulse Resp BP Pulse Ox 97 F L 73 18 110/82 97 03/14/20 08:56 03/14/20 08:56 03/14/20 08:56 03/14/20 08:56 03/14/20 08:56 Preop Diagnosis: Abdominal pain Proposed Procedure: Operation Date: 03/14/20 10:00 Proposed Procedures p EGD with poss biopsy [id number] K21.9(Not Applicable) - Jonah Perrin MD s Colonoscopy with poss biopsy poss polypectomy(Not Applicable) - Jonah Perrin MD Last intake: Intake Last Liquid Date 03/13/20 Last Liquid Time 22:00 Last Solid Date 03/12/20 Last Solid Time 18:00 Social: Social History: Tobacco and No alcohol Exam: Pre-Anes Outpt Exam: alert, oriented x 3, clear to auscultation bilaterally and regular rate & rhythm Airway: Submandibular: WNL Cervical ROM: WNL MP: 2 Dentition: Other (teeth ok) History/ROS: No significant history except as noted Pulmonary: Pulmonary: None reported CV/HEM: CV/HEM: None reported : : None reported Hepatic: Hepatic: None reported GI: GI: GERD Metabolic: Metabolic: None reported Musc/skel: Musc/skel: Lower Back Pain Neuropsych: Neuropsych: None reported Anesthetic Plan: ASA status: 2 Anesthesia: Anesthesia Evaluation and MAC Risk of > 500 ml blood loss (7ml/kg in children): No Meds/Allergies Current Medications: Current Medications Generic Name Dose Route Start Last Admin Trade Name Freq PRN Reason Stop Dose Admin Sodium Chloride 1,000 mls @ 30 ml s/hr 03/14/20 09:00 03/14/20 09:18 Sodium Chloride 0.9% IV 30 mls/hr .Q24H LUIS Administration PFSH Anesthesia PFSH: Medical History Atypical chest pain GERD (gastroesophageal reflux disease) Hernia Panic attack Umbilical hernia Surgical History H/O left inguinal hernia repair with mesh H/O right inguinal hernia repair with mesh H/O umbilical hernia repair with mesh Family History Other Diabetes Stroke Denies family history of CAD (coronary artery disease) Hyperlipidemia Anesthesia complication Bleeding disorder Hypertension Social History Smoking and tobacco status: current every day smoker Quit status (tobacco): has quit using tobacco Year quit tobacco: November 2019 Alcohol intake: former Household members: spouse Marital status: Current occupational status: employed History of recent travel: No Data Anesthesia Cardiac Studies: No Data to Display
--- NOTE | 2020-03-14 09:39 | PC.CHAP ---
Pastoral Care Encounter/Spiritual Assessment Type of Contact [] Declined graduate student visit [x] Patient/Family/Request visit [x] Outpatient visit [] Follow-up visit [] Physician referral [] Code/Alert [] Routine visit [] Staff referral [] Actively dying [] Patient sleeping [] Family support [] [] Out of room [] Palliative care [] [] Receiving care in room [x] Pre-surgical visit [] Trauma [] Long length of stay [] ICU visit [] Other: Relational/Emotional Strength [] Patient feels connected with others/family/visitors/staff [] Distress [] Loneliness/isolation [] Abandonment Spirituality of Patient [x] Person of Bernadette [x] Attends Islam of their Bernadette [x] Believes in Prayer [x] Reads Bible or Sabianism materials [] There are Spiritual issues to be addressed Computer Sciences Professor Interventions [x] Prayer [x] Active listening [x] Non-anxious presence [x] Spiritual/emotional support [] Crisis/trauma care [] Spiritual counseling [] Bereavement support [] Provided bereavement packet [] Provided Bible/devotional materials [] Provided toy/stuffed animal, coloring book to patient or family member [] Provided Communion [] Anointing/[place] [] Salvation [x] Completed spiritual assessment [] Other: Impact on Illness or Injury [] Angry [] Fearful [x] Anxious [] Often cries [] Exhaustion [] Unable to work [] Unable to attend adventist [] Unable to walk/stand [] Unable to read [] Unable to drive [] Unable to eat/drink [] Unable to sleep [] Unable to be with family [] Patient intubated [] Other: Summary Patient ask for a graduate student to pray before his procedure. Time spent with patient 5 min
--- NOTE | 2020-03-14 10:26 | W.PM.OPSUD ---
Surgery/Procedure H&P Update DATE OF PROCEDURE: March 14, 2020 DATE H&P PERFORMED: 03/06/20 H&P UPDATE INFORMATION: I have reviewed H&P completed within last 30 days, I have examined patient prior to procedure and No changes to prior documentation PREOP DIAGNOSIS: Abdominal pain PLANNED PROCEDURE: Operation Date: 03/14/20 10:00 Proposed Procedures p EGD with poss biopsy [id number] K21.9(Not Applicable) - Jonah Perrin MD s Colonoscopy with poss biopsy poss polypectomy(Not Applicable) - Jonah Perrin MD
[2020-03-14 10:59] VITALS: BP 99/63; PULSE 68; RESP 18; TEMP 36.1; O2SAT 96
--- NOTE | 2020-03-14 11:02 | ANE.PACU2 ---
Inpatient post-anesthesia follow up: Airway intact: Yes Vital signs: Temperature 97.0 F Pulse Rate 68 Respiratory Rate 18 Blood Pressure 99/63 Pulse Oximetry 96 Oxygen Delivery Me thod Nasal Cannula Oxygen Flow Rate 3 Fraction of Inspir ed Oxygen Hydration adequate: Yes Nausea and vomiting: No Pain level: 1 Mental status: Baseline
[2020-03-14 11:08] VITALS: BP 117/79; PULSE 73; RESP 18; O2SAT 97
== END 2020-03-14 11:26 | disposition home or self-care (01) ==
PROVIDERS: PCP Nurse Practitioner; Visit Provider Surgery
PROC: 0DJ08ZZ Inspection of Upper Intestinal Tract, Via Natural or Artificial Opening Endoscopic (ICD-10-PCS; CPT 43235; principal; 2020-03-14 10:00)
PROC: 0DJD8ZZ Inspection of Lower Intestinal Tract, Via Natural or Artificial Opening Endoscopic (ICD-10-PCS; CPT 45378; 2020-03-14 10:00)
DX: R10.9 Unspecified abdominal pain (principal); K21.9 Gastro-esophageal reflux disease without esophagitis; K29.50 Unspecified chronic gastritis without bleeding
CPT/HCPCS: 12345; 43239; 45380; 88305; J2704; J7030

== ENCOUNTER 2020-06-22 00:12 | Emergency (ER) | payer OTHER, SELFPAY ==
[2020-06-22 00:17] VITALS: BP 126/86; PULSE 88; RESP 18; TEMP 36.8; O2SAT 98; BMI 24.4
--- NOTE | 2020-06-22 00:17 | XR_ITS ---
WS: [id number] Portable AP upright chest, 06/22/2020 Clinical Data: Palpitations Comparison: Portable chest, 02/07/2020. Findings: No nodules, masses or effusions are seen. The heart is normal. The pulmonary vascularity is not increased. No pneumonia or pneumothorax is seen. Monitor leads are on the chest wall. XR/XR chest 1V portable [id number] Impression: Negative chest.
--- NOTE | 2020-06-22 00:18 | ECG_ITS ---
[facility] Test Date: 2020-06-22 Pat Name: Víctor Espana Department: Room: Gender: Male Strategic Marketing Specialist: : 1990 Requested By: Jenelle Salazar Order Number: [id number] Klever MD: Tej Massey M.D. Measurements Intervals [place] Rate: 78 P: 59 DC: 136 QRS: 77 QRSD: 89 T: 65 QT: 361 QTc: 413 Interpretive Statements SINUS RHYTHM WITH SINUS ARRHYTHMIA Compared to ECG 02/07/2020 22:54:55 Early repolarization no longer present Electronically Signed On 06-22-2020 19:21:27 CDT by Tej Massey M.D. [id number]
--- NOTE | 2020-06-22 00:21 | ED_ITS ---
HPI - Arrhythmia/Palpitations General: Chief Complaint: Arrhythmia/Palpitations Stated Complaint: HEART FLUTTERS Time Seen by Provider: 06/22/20 00:13 Source: patient, family and EMS Mode of arrival: EMS Limitations: no limitations History of Present Illness: HPI narrative: Víctor is a nice 30-year-old male who comes in complaining of palpitations. States he has had palpitations for the past 2 days. They are sporadic and when they will occur acute he cannot associate them with any activity such as exertion or exercise. He denies any fevers or chills. He does not report shortness of breath, diaphoresis, nausea or vomiting, radiation of his symptoms or pain. Patient states that symptoms will last anywhere from a few seconds up to a minute. He states he will have anywhere between 5 minutes to 5 hours in between the episodes. He is unaware of anything that makes his symptoms better or worse. He denies having anything like this similar in the past. Associated symptoms: Deny diaphoresis, nausea, pre-syncope, syncope or vomiting Review of Systems Const: Denies: fever(s), chills, body aches, fatigue, malaise or diaphoresis Eyes: Denies: change in vision, blurry vision, photophobia, eye discomfort, eye discharge, eye redness or yellow eyes ENMT: Denies: throat pain, odynophagia, hoarseness, swelling of lips/tongue, ear or mastoid pain, ear discharge, change in hearing or nasal discharge Card: Reports: palpitations; Denies: chest pain, irregular heart rhythm, edema, lightheadedness, syncope, pre-syncope, dyspnea on exertion or orthopnea Resp: Denies: dyspnea, productive cough, non-productive cough, wheezing, hemoptysis or chest congestion GI: Denies: abdominal pain, nausea, vomiting, hematemesis, coffee ground emesis, heartburn, diarrhea, constipation, GI cramping, hematochezia or melena : Denies: flank pain, dysuria, urinary frequency, urinary urgency or hematuria Musc: Denies: neck pain, back pain, extremity pain, extremity swelling, joint pain, joint swelling, joint redness, joint warmth or joint stiffness Skin/Breast: Denies: rash, pruritus, erythema, skin pain or skin tenderness Neuro: Denies: headache(s), numbness in extremities, weakness in extremities, sensory changes, lack of coordination, difficulty walking, dizziness, vertigo, confusion, Slurred speech present or seizure-like activity [place]o/Lymph: Denies: easy bruising, easy bleeding, petechiae, purpura or enlarged lymph nodes All/Imm: Denies: urticaria, throat swelling, tongue swelling, facial swelling or acute wheezing PFSH ED PFSH: Medical History Atypical chest pain GERD (gastroesophageal reflux disease) Hernia Panic attack Umbilical hernia Surgical History H/O esophagogastroduodenoscopy (03/14/20) normal H/O left inguinal hernia repair with mesh H/O right inguinal hernia repair with mesh H/O umbilical hernia repair with mesh Status post colonoscopy (03/14/20) normal Family History Other Diabetes Stroke Denies family history of CAD (coronary artery disease) Hyperlipidemia Anesthesia complication Bleeding disorder Hypertension Social History Smoking and tobacco status: current every day smoker Quit status (tobacco): has quit using tobacco Year quit tobacco: November 2019 Alcohol intake: former Household members: spouse Marital status: Current occupational status: employed History of recent travel: No Physical Exam Const: COMMON NORMALS: no acute distress, patient oriented x3, no limitations and alert GENERAL APPEARANCE: cooperative HENMT: COMMON NORMALS: normocephalic, atraumatic, external ears normal, EAC's normal and Normal external nose present HEAD & SCALP: normal to inspection, normocephalic and atraumatic FACE & SINUS: normal facial exam and face symmetric NOSE: Normal external nose present and Normal nares present EXTERNAL EAR: Yes external ears normal EXTERNAL AUDITORY CANAL: EAC's normal MOUTH: Normal oral and palatal mucosa present, lip normal and tongue normal Eye: COMMON NORMALS: Equal, round and reactive pupils present and conjunctivae normal GENERAL EYE: appearance normal, both eyes and all related structures ALIGNMENT: Yes alignment normal PERIORBITAL: periorbital findings normal EYELID: eyelids normal CONJUNCTIVA: Yes conjunctivae normal SCLERA: sclerae normal PUPIL: Yes Equal, round and reactive pupils present Neck/C-Spine: COMMON NORMALS: full ROM, no lymphadenopathy, supple, no meningeal signs and no JVD GENERAL: Yes normal visual inspection and Yes trachea midline Chest: COMMONS NORMALS: normal inspection of the chest and normal palpation of entire chest wall Resp: COMMON NORMALS: normal respiratory effort, No retractions, No use of accessory muscles and clear to auscultation bilaterally EFFORT & INSPECTION: Yes able to speak in complete sentences and Yes symmetric chest movement AUSCULTATION: clear to auscultation bilaterally, no crackles, no rales, no rhonchi and no wheezes Cardio: COMMON NORMALS: no JVD, regular rate, regular rhythm, S1 normal heart sound present and S2 normal heart sound present RATE: regular rate RHYTHM: regular rhythm HEART SOUNDS: S1 normal heart sound present, S2 normal heart sound present, no click, no gallops, no murmurs and no rubs GI: COMMON NORMALS: Soft to palpation and No hepatosplenomegaly present PALPATION: Yes Soft to palpation, No Tenderness to palpation present (GI), No Guarding due to palpation present (GI), No Rigid due to palpation, Yes No hepatosplenomegaly present, No Hernia present, No Palpable mass present and No Pulsatile mass present : COMMON NORMALS: Yes no CVA tenderness BLADDER/KIDNEY EXAM: Yes no CVA tenderness Back/Pelvis: COMMON NORMALS: no CVA tenderness, thoracic and lumbar spine normal to inspection, no thoracic nor lumbar tenderness and thoraco-lumbar ROM normal Extremity: COMMON NORMALS: normal to inspection, full ROM, capillary refill normal, no joint enlargement, no clubbing, cyanosis or edema and no calf tenderness Neuro: COMMON NORMALS: patient oriented x3, CN's II-XII intact bilaterally, moves all extremities, no focal motor deficits and no sensory deficits noted SENSORIUM/ORIENTATION: Yes alert MENINGEAL SIGNS: Yes no meningeal signs SPEECH: speech normal Psych: COMMON NORMALS: mental status grossly normal, Normal thought process present, cooperative, normal affect, speech normal and activity/motor behavior normal SPEECH: Yes normal speech THOUGHT PROCESS: Normal thought process present Skin: COMMON NORMALS: no rashes or lesions noted, turgor normal, no jaundice, no petechiae and no mottling GENERAL SKIN EXAM: no rashes or lesions noted and turgor normal Course Vital Signs: Vital signs: Vital Signs Temperature 98.2 F 06/22/20 00:17 Pulse Rate 88 06/22/20 03:11 Respiratory Rate 16 06/22/20 03:11 Blood Pressure 116/75 06/22/20 03:11 Pulse Oximetry 97 06/22/20 03:11 MDM - Arrhythmia/Palpitations MDM Narrative: Medical decision making narrative: Víctor is a nice 30-year-old male who comes in complaining of palpitations. He has no chest pain. Has 2- EKGs and negative cardiac enzymes here. Once I informed him his labs were unremarkable he began to tell me he thinks this is an anxiety attack. He has a history of anxiety. He has asking for something to be prescribed at discharge. We will go and give him Atarax. This time I see no sign of dissection, acute coronary syndrome or pulmonary embolism. Patient does not have any infectious signs or symptoms or significant GI sign or symptom. He does agree to return should symptoms change or worsen but at this time he is asking to be discharged. Lab Data: Attestation: I reviewed the patient's lab results. Labs: Lab Results 06/22/20 06/22/20 06/22/20 Range/Units 00:27 00:27 00:27 WBC 9.4 (4.0-10.0) 10^3/ uL RBC 5.02 (4.1-5.3) 10^6/u L Hgb 15.6 (11.7-16.6) g/dL Hct 45.1 (42.0-52.0) % MCV 89.8 (80-94) fL MCH 31.1 (28.0-34.0) pg MCHC 34.6 (30.0-36.0) g/dL RDW 12.4 (12.1-15.1) % Plt Count 263 (130-400) 10^3/c mm MPV 9.7 (7.4-10.4) fL Neut % (Auto) 55.9 % Lymph % (Auto) 32.0 % [place] % (Auto) 9.4 % Eos % (Auto) 2.0 % Baso % (Auto) 0.5 % Neut # (Auto) 5.24 (1.8-7.7) 10^3/u L Lymph # (Auto) 3.0 (0.8-4.8) 10^3/u L [place] # (Auto) 0.9 (0.2-0.9) 10^3/u L Eos # (Auto) 0.2 (0.0-0.8) 10^3/u L Baso # (Auto) 0.1 (0.0-0.1) 10^3/u L Nucleated RBC % (a uto) 0 % Nucleated RBCs # 0.0 /100WBC D-Dimer (0-0.59) ug/mIFE U Sodium 136 (136-145) mmol/L Potassium 4.0 (3.5-5.1) mmol/L Chloride 105 (98-107) mmol/L Carbon Dioxide 23 (22-29) mmol/L Anion Gap 12.0 (5-19) BUN 15 (6-20) mg/dL Creatinine 1.0 (0.7-1.2) mg/dL GFR Calculation 88.3 L (90-130) mL/min Glucose 114 (65-115) mg/dL Calculated Osmolal ity 284 L (285-295) mOsm/k g Calcium 9.7 (8.5-10.5) mg/dL Magnesium 2.2 (1.7-2.3) mg/dL Total Bilirubin 0.3 (0.15-1.2) mg/dL AST 19 (0-40) U/L ALT 24 (0-41) U/L Alkaline Phosphata se 124 (40-130) IU/L Creatine Kinase 61 (39-308) U/L Troponin T Baselin e 6 (0-15) ng/L Troponin T 120 Min [place] (0-15) ng/L Delta Troponin T (0-10) ABS# Total Protein 6.5 L (6.6-8.7) g/dL Albumin 4.5 (3.5-5.2) g/dL Globulin 2.0 (1.3-4.6) g/dL Free T4 1.59 (0.82-1.77) ng/d L Urine Color (Yellow) Urine Appearance (CLEAR) Urine pH (5-7) Ur Specific Gravit y (1.005-1.030) Urine Protein (Negative) Urine Glucose (UA) (Normal) Urine Ketones (Negative) Urine Blood (Negative) Urine Nitrate (Negative) Urine Bilirubin (Negative) Prot Sulfosalicyli c Acd (Negative) Urine Urobilinogen (Negative) mg/dL Ur Leukocyte Rossy ase (Negative) Urine RBC (0-2) /hpf Urine WBC (0-5) /hpf Ur Squamous Epith Cells (0-5) /hpf Amorphous Sediment /hpf Urine Bacteria (NONE) /hpf Urine Opiates Scre en (Negative) ng/mL Ur Barbiturates Sc reen (Negative) ng/mL Ur Phencyclidine S crn (Negative) ng/mL Ur Amphetamines Sc reen (Negative) ng/mL U Benzodiazepines Scrn (Negative) ng/mL Urine Cocaine Scre en (Negative) ng/mL U Marijuana (THC) Screen (Negative) ng/mL Ethyl Alcohol < 10 (0-10) mg/dL 06/22/20 06/22/20 06/22/20 Range/Units 00:27 00:42 00:42 WBC (4.0-10.0) 10^3/ uL RBC (4.1-5.3) 10^6/u L Hgb (11.7-16.6) g/dL Hct (42.0-52.0) % MCV (80-94) fL MCH (28.0-34.0) pg MCHC (30.0-36.0) g/dL RDW (12.1-15.1) % Plt Count (130-400) 10^3/c mm MPV (7.4-10.4) fL Neut % (Auto) % Lymph % (Auto) % [place] % (Auto) % Eos % (Auto) % Baso % (Auto) % Neut # (Auto) (1.8-7.7) 10^3/u L Lymph # (Auto) (0.8-4.8) 10^3/u L [place] # (Auto) (0.2-0.9) 10^3/u L Eos # (Auto) (0.0-0.8) 10^3/u L Baso # (Auto) (0.0-0.1) 10^3/u L Nucleated RBC % (a uto) % Nucleated RBCs # /100WBC D-Dimer <= 0.27 (0-0.59) ug/mIFE U Sodium (136-145) mmol/L Potassium (3.5-5.1) mmol/L Chloride (98-107) mmol/L Carbon Dioxide (22-29) mmol/L Anion Gap (5-19) BUN (6-20) mg/dL Creatinine (0.7-1.2) mg/dL GFR Calculation (90-130) mL/min Glucose (65-115) mg/dL Calculated Osmolal ity (285-295) mOsm/k g Calcium (8.5-10.5) mg/dL Magnesium (1.7-2.3) mg/dL Total Bilirubin (0.15-1.2) mg/dL AST (0-40) U/L ALT (0-41) U/L Alkaline Phosphata se (40-130) IU/L Creatine Kinase (39-308) U/L Troponin T Baselin e (0-15) ng/L Troponin T 120 Min [place] (0-15) ng/L Delta Troponin T (0-10) ABS# Total Protein (6.6-8.7) g/dL Albumin (3.5-5.2) g/dL Globulin (1.3-4.6) g/dL Free T4 (0.82-1.77) ng/d L Urine Color Yellow (Yellow) Urine Appearance Cloudy (CLEAR) Urine pH 8 H (5-7) Ur Specific Gravit y 1.020 (1.005-1.030) Urine Protein Neg (Negative) Urine Glucose (UA) Norm (Normal) Urine Ketones Negative (Negative) Urine Blood Neg (Negative) Urine Nitrate Negative (Negative) Urine Bilirubin Neg (Negative) Prot Sulfosalicyli c Acd Negative (Negative) Urine Urobilinogen Norm (Negative) mg/dL Ur Leukocyte Rossy ase Negative (Negative) Urine RBC None (0-2) /hpf Urine WBC None (0-5) /hpf Ur Squamous Epith Cells None (0-5) /hpf Amorphous Sediment 2+ /hpf Urine Bacteria None (NONE) /hpf Urine Opiates Scre en Negative (Negative) ng/mL Ur Barbiturates Sc reen Negative (Negative) ng/mL Ur Phencyclidine S crn Negative (Negative) ng/mL Ur Amphetamines Sc reen Negative (Negative) ng/mL U Benzodiazepines Scrn Negative (Negative) ng/mL Urine Cocaine Scre en Negative (Negative) ng/mL U Marijuana (THC) Screen Negative (Negative) ng/mL Ethyl Alcohol (0-10) mg/dL 06/22/20 Range/Units 02:18 WBC (4.0-10.0) 10^3/ uL RBC (4.1-5.3) 10^6/u L Hgb (11.7-16.6) g/dL Hct (42.0-52.0) % MCV (80-94) fL MCH (28.0-34.0) pg MCHC (30.0-36.0) g/dL RDW (12.1-15.1) % Plt Count (130-400) 10^3/c mm MPV (7.4-10.4) fL Neut % (Auto) % Lymph % (Auto) % [place] % (Auto) % Eos % (Auto) % Baso % (Auto) % Neut # (Auto) (1.8-7.7) 10^3/u L Lymph # (Auto) (0.8-4.8) 10^3/u L [place] # (Auto) (0.2-0.9) 10^3/u L Eos # (Auto) (0.0-0.8) 10^3/u L Baso # (Auto) (0.0-0.1) 10^3/u L Nucleated RBC % (a uto) % Nucleated RBCs # /100WBC D-Dimer (0-0.59) ug/mIFE U Sodium (136-145) mmol/L Potassium (3.5-5.1) mmol/L Chloride (98-107) mmol/L Carbon Dioxide (22-29) mmol/L Anion Gap (5-19) BUN (6-20) mg/dL Creatinine (0.7-1.2) mg/dL GFR Calculation (90-130) mL/min Glucose (65-115) mg/dL Calculated Osmolal ity (285-295) mOsm/k g Calcium (8.5-10.5) mg/dL Magnesium (1.7-2.3) mg/dL Total Bilirubin (0.15-1.2) mg/dL AST (0-40) U/L ALT (0-41) U/L Alkaline Phosphata se (40-130) IU/L Creatine Kinase (39-308) U/L Troponin T Baselin e (0-15) ng/L Troponin T 120 Min [place] 6.00 (0-15) ng/L Delta Troponin T 0 (0-10) ABS# Total Protein (6.6-8.7) g/dL Albumin (3.5-5.2) g/dL Globulin (1.3-4.6) g/dL Free T4 (0.82-1.77) ng/d L Urine Color (Yellow) Urine Appearance (CLEAR) Urine pH (5-7) Ur Specific Gravit y (1.005-1.030) Urine Protein (Negative) Urine Glucose (UA) (Normal) Urine Ketones (Negative) Urine Blood (Negative) Urine Nitrate (Negative) Urine Bilirubin (Negative) Prot Sulfosalicyli c Acd (Negative) Urine Urobilinogen (Negative) mg/dL Ur Leukocyte Rossy ase (Negative) Urine RBC (0-2) /hpf Urine WBC (0-5) /hpf Ur Squamous Epith Cells (0-5) /hpf Amorphous Sediment /hpf Urine Bacteria (NONE) /hpf Urine Opiates Scre en (Negative) ng/mL Ur Barbiturates Sc reen (Negative) ng/mL Ur Phencyclidine S crn (Negative) ng/mL Ur Amphetamines Sc reen (Negative) ng/mL U Benzodiazepines Scrn (Negative) ng/mL Urine Cocaine Scre en (Negative) ng/mL U Marijuana (THC) Screen (Negative) ng/mL Ethyl Alcohol (0-10) mg/dL Imaging Data^: CXR: Attestation: I personally reviewed and interpreted this imaging study as follows: My impression: No acute cardiopulmonary findings. EKG Data^: EKG 1: Attestation: I personally reviewed and interpreted this EKG as follows: EKG interpretation date: 06/22/20 EKG interpretation time: 00:17 Interpretation: Normal sinus rhythm at 81 beats a minute, normal axis, no blocks, normal intervals, no acute ST-T wave changes. EKG 2: Attestation: I personally reviewed and interpreted this EKG as follows: EKG interpretation date: 06/22/20 EKG interpretation time: 01:32 Interpretation: Normal sinus rhythm at 78 beats a minute. Sinus arrhythmia present. No blocks, normal intervals. No acute ST-T wave changes. Discharge Plan Discharge Patient Disposition: Home Clinical Impression: Palpitations, Anxiety Condition: Stable Prescriptions: New hydroxyzine HCl 25 mg tablet 25 mg PO Q6H PRN (Reason: anxiety) Qty: 30 RF: 0 No Action cholecalciferol (vitamin D3) 10 mcg (400 unit) tablet 10 mcg PO DAILY RF: 0 Adult Probiotic 3 billion cell capsule 3,000 mmu cells PO DAILY RF: 0 [id number] oil-flax-E [phone] dc-xm-qc-unit Capsule 1 cap PO QAM RF: 0 Discharge Orders: Discharge Order (Routine); Ordered 06/22/20 Ordered By: Jenelle Perez Referrals: Tej Massey MD [Physician] - 1-3 days Lauryn Campos FNP [Primary Care Provider] - 1-3 days Discharge Diet: Advance as tolerated Discharge Activity: Increase activity as tolerated Patient Instructions: Palpitations (ED) Activity Restrictions/Additional Instructions: Please return to the ER immediately for any of the signs or symptoms listed on your discharge instruction sheets, worsening/changing of your symptoms, you are not getting better as quickly as expected, or for ANY other cause or concerns. Discharge Date/Time: 06/22/20 03:12 Coding Level of Care Code ED Washing Machine Installer for Chg Fwd Exam Comprehensive
[2020-06-22 00:40] LABS: Basophils # 0.1 10^3/uL (0.0-0.1); Basophils % 0.5 %; Eosinophils # 0.2 10^3/uL (0.0-0.8); Hematocrit 45.1 % (42.0-52.0); Hemoglobin 15.6 g/dL (11.7-16.6); Mean Corpuscular HGB Conc 34.6 g/dL (30.0-36.0); Mean Corpuscular Hemoglobin 31.1 pg (28.0-34.0); Mean Corpuscular Volume 89.8 fL (80-94); Mean Platelet Volume 9.7 fL (7.4-10.4); Monocytes # 0.9 10^3/uL (0.2-0.9); Monocytes % 9.4 %; Neutrophils # 5.24 10^3/uL (1.8-7.7); Neutrophils % 55.9 %; Nucleated Red Blood Cells % 0 %; Platelet Count 263 10^3/cmm (130-400); Red Blood Count 5.02 10^6/uL (4.1-5.3); Red Cell Distribution Width 12.4 % (12.1-15.1); White Blood Count 9.4 10^3/uL (4.0-10.0)
[2020-06-22 00:55] VITALS: BP 136/90; PULSE 96; RESP 18; O2SAT 96
[2020-06-22 01:02] LABS: Troponin(5th) Baseline 6 ng/L (0-15)
[2020-06-22 01:11] LABS: Alanine Aminotransferase 24 U/L (0-41); Albumin Level 4.5 g/dL (3.5-5.2); Alkaline Phosphatase 124 IU/L (40-130); Aspartate Amino Transferase 19 U/L (0-40); Blood Urea Nitrogen 15 mg/dL (6-20); Calcium 9.7 mg/dL (8.5-10.5); Carbon Dioxide 23 mmol/L (22-29); Chloride 105 mmol/L (98-107); Creatine Phosphokinase 61 U/L (39-308); Free T4 Free Thyroxine 1.59 ng/dL (0.82-1.77); Glomerular Filtration Rate 88.3 mL/min (90-130); Glucose 114 mg/dL (65-115); Magnesium 2.2 mg/dL (1.7-2.3); Osmolality Calculated 284 mOsm/kg (285-295); Sodium 136 mmol/L (136-145); Total Bilirubin 0.3 mg/dL (0.15-1.2); Total Protein 6.5 g/dL (6.6-8.7)
[2020-06-22 01:12] LABS: Alcohol Level < 10 mg/dL (0-10)
[2020-06-22] MEDS: sodium chloride 0.9% 1,000 ML 999 ML IV (01:17)
[2020-06-22 01:21] VITALS: BP 127/88; PULSE 76; RESP 20; O2SAT 97
[2020-06-22 01:24] LABS: Add Urine Microscopic? YES; Bilirubin Urine Neg (Negative); Blood Urine Neg (Negative); Glucose Urine UA Norm (Normal); Ketones Urine Negative (Negative); Leukocyte Esterase Urine Negative (Negative); Nitrate Urine Negative (Negative); Protein Urine Neg (Negative); Sulfosalicylic Acid Urine Negative (Negative); Urine Appearance Cloudy (CLEAR); Urine Color Yellow (Yellow); Urobilinogen Urine Norm (Negative); pH Urine 8 (5-7)
[2020-06-22 01:25] LABS: Amorphous Sediment Urine 2+ /hpf
[2020-06-22 01:28] LABS: Amphetamines Screen Urine Negative (Negative); Barbiturates Screen Urine Negative (Negative); Benzodiazepines Screen Urine Negative (Negative); Cocaine Screen Urine Negative (Negative); Opiate Screen Urine Negative (Negative); PCP Screen Urine Negative (Negative); THC Screen Urine Negative (Negative)
--- NOTE | 2020-06-22 01:37 | PC.NURSE ---
repeat ekg done, pt having chest pain
[2020-06-22 01:48] LABS: D Dimer <= 0.27 ug/mIFEU (0-0.59)
[2020-06-22 02:24] VITALS: BP 125/77; PULSE 77; RESP 18; O2SAT 97
[2020-06-22] MEDS: LORazepam 2 mg/mL INJ 1 mL 0.5 MG IVP (02:31)
[2020-06-22 02:49] LABS: Troponin 5 2HR Delta 0 ABS# (0-10)
[2020-06-22 03:03] VITALS: BP 116/75; PULSE 87; RESP 18; O2SAT 97
[2020-06-22 03:11] VITALS: BP 116/75; PULSE 88; RESP 16; O2SAT 97
== END 2020-06-22 03:12 | disposition home or self-care (01) ==
PROVIDERS: Emergency Provider Emergency Medicine; PCP Nurse Practitioner
DX: R00.2 Palpitations (principal); F41.9 Anxiety disorder, unspecified; F17.210 Nicotine dependence, cigarettes, uncomplicated; Z79.899 Other long term (current) drug therapy
CPT/HCPCS: 12345; 71045; 80053; 80306; 80307; 81001; 82550; 83735; 84439; 84484; 85025; 85378; 93005; 96361; 96374; 96375; 99284; J2060; J7030

== ENCOUNTER 2024-11-05 14:56 | Outpatient (CLI) | payer OTHER, SELFPAY ==
--- NOTE | 2024-11-05 15:01 | CT_ITS ---
WS: [id number] CT HEAD TECHNIQUE: Noncontrast CT of the head obtained from the skullbase to the vertex. CLINICAL INFORMATION: NEW ONSET FACIAL TREMOR COMPARISON: None. DLP: 1169.[address] scans at [facility] use at least one of these dose optimization techniques: automated exposure control; mA and/or kV adjustment per patient size (includes targeted exams where dose is matched to clinical indication); or iterative reconstruction. FINDINGS: No evidence of intracranial hemorrhage or mass effect. Ventricular system and basal cisterns are patent. No extra-axial fluid collections. No evidence of mass or mass effect. Normal kang-white differentiation. Incidental cerebellar tonsillar ectopia. No hydrocephalus. Normal fourth ventricle. Paranasal sinuses and mastoid air cells are well aerated. .Normal visualized soft tissues. CT/CT head wo con* [id number] IMPRESSION: 1. No evidence of intracranial hemorrhage or mass effect. 2. No acute intracranial findings.
== END 2024-11-05 14:57 | disposition home or self-care (01) ==
PROVIDERS: PCP Nurse Practitioner; Visit Provider Nurse Practitioner
DX: Z01.89 Encounter for other specified special examinations (principal); R93.0 Abnormal findings on diagnostic imaging of skull and head, not elsewhere classified
CPT/HCPCS: 70450